=== PATIENT | male | born 1995 | race Two or more races ===

== ENCOUNTER 2024-09-09 11:22 | Emergency (ER) | payer BC, OTHER ==
[~2024-09-09] VITALS: Ht 167.6 cm; Wt 95.5 kg
[2024-09-09] MEDS: TETanus/Pertussis (Acell)/Diphther VAC/PF (Tdap-Adult) 0.5ml syringe IMVAC ONE (13:23)
[2024-09-09] MEDS: LIDOcaine 1% W/epiNEPHrine 1:100,000 20ml vial IJ ONE (13:29)
[2024-09-09 14:43] VITALS: BP 140/90; PULSE 81; RESP 14; TEMP 98; O2SAT 99
== END 2024-09-09 14:45 | disposition home or self-care (01) ==
LOC: ER 11:23
DX: S61.412A Laceration without foreign body of left hand, initial encounter (principal); X99.1XXA Assault by knife, initial encounter; Y93.89 Activity, other specified; Y92.89 Other specified places as the place of occurrence of the external cause; Y99.8 Other external cause status
CPT/HCPCS: 12002; 73130; 90471; 90715; 99283; J7030; A6258; A6446; A6449

== ENCOUNTER 2024-09-17 07:53 | Emergency (ER) | payer OTHER ==
[~2024-09-17] VITALS: Ht 167.6 cm; Wt 98.8 kg
[2024-09-17 07:57] VITALS: PULSE 84
[2024-09-17 09:07] VITALS: BP 136/91; RESP 16; TEMP 98.2; O2SAT 99
== END 2024-09-17 09:11 | disposition home or self-care (01) ==
LOC: ER 07:54
DX: S61.412D Laceration without foreign body of left hand, subsequent encounter (principal); Z48.02 Encounter for removal of sutures; X58.XXXD Exposure to other specified factors, subsequent encounter
CPT/HCPCS: 99281